=== PATIENT | male | born 2005 | race Caucasian/White ===

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

== ENCOUNTER 2024-06-12 16:45 | Inpatient (IN) | payer OTHER ==
--- NOTE | 2024-06-12 17:12 | ED ---
Psych HPI - General Chief Complaint: Psychiatric Symptoms Stated Complaint: SI Time Seen by Provider: 06/12/24 17:02 Source: patient, RN notes reviewed Mode of arrival: ambulatory - History of Present Illness Initial Comments: 18-year-old male presenting for suicidal ideation x 5 days. States he has no plan however does not feel comfortable being by himself right now due to the suicidal ideation he is having. Denies history of hospitalizations or suicide attempts. States this is the first time he has been open about his mental health. He lives with his grandparents and his cousin is present at bedside. No medical complaints. - Related Data Home Medications Medication Instructions Recorded Confirmed No Known Home Medications 11/16/22 11/16/22 Allergies Allergy/AdvReac Type Severity Reaction Status Date / Time No Known Allergies Allergy Verified 06/12/24 16:51 Review of Systems ROS Statement: Those systems with pertinent positive or pertinent negative responses have been documented in the HPI. ROS Other: All systems not noted in ROS Statement are negative. Past Medical History Past Medical History: Asthma History of Any Multi-Drug Resistant Organisms: None Reported Past Surgical History: No Surgical Hx Reported Past Psychological History: No Psychological Hx Reported Smoking Status: Current every day smoker Past Alcohol Use History: None Reported Past Drug Use History: Marijuana General Exam Limitations: no limitations General appearance: alert, in no apparent distress Head exam: Present: atraumatic, normocephalic, normal inspection Eye exam: Present: normal appearance, PERRL, EOMI. Absent: scleral icterus, conjunctival injection, periorbital swelling Neurological exam: Present: alert Psychiatric exam: Present: normal affect, normal mood, suicidal ideation. Absent: homicidal ideation Skin exam: Present: warm, dry, intact, normal color. Absent: rash Course Vital Signs 06/12/24 16:47 Temperature 98.2 F Pulse Rate 116 H Respiratory 18 Rate Blood Pressure 145/98 O2 Sat by Pulse 99 Oximetry Medical Decision Making - Medical Decision Making Was pt. sent in by a medical professional or institution ([facility] Perez, FOURTH OFFICER, urgent care, hospital, or longterm...) When possible be specific @ -No Did you speak to anyone other than the patient for history (EMS, parent, family, police, friend...)? What history was obtained from this source @ -No Did you review nursing and triage notes (agree or disagree)? Why? @ -I reviewed and agree with nursing and triage notes Were old charts reviewed (outside hosp., previous admission, EMS record, old EKG, old radiological studies, urgent care reports/EKG's, longterm records)? Report findings @ -No old charts were reviewed Differential Diagnosis (chest pain, altered mental status, abdominal pain women, abdominal pain men, vaginal bleeding, weakness, fever, dyspnea, syncope, headache, dizziness, GI bleed, back pain, seizure, CVA, palpatations, mental health, musculoskeletal)? @ -Differential Mental Health Depression, anxiety, bipolar, psychosis, schizophrenia, borderline personality, situational depression, adjustment disorder, behavioral disorder, brain tumor, malingering, substance abuse, encephalopathy, medication reaction, dementia, hypothyroidism, degenerative neurologic disorder, lupus.... This is not meant to be all-inclusive list EKG interpreted by me (3pts min.). @ -None X-rays interpreted by me (1pt min.). @ -None done CT interpreted by me (1pt min.). @ -None done U/S interpreted by me (1pt. min.). @ -None done What testing was considered but not performed or refused? (CT, X-rays, U/S, labs)? Why? @ -None What meds were considered but not given or refused? Why? @ -None Did you discuss the management of the patient with other professionals (professionals i.e. , PA, FOURTH OFFICER, lab, RT, psych nurse, social service manager, retail financial analyst, teacher, community reinvestment act officer, director case management)? Give summary @ - I spoke with [facility] who recommends psychiatric admission Was smoking cessation discussed for >3mins.? @ -No Was critical care preformed (if so, how long)? @ -No Were there social determinants of health that impacted care today? How? (Homelessness, low income, unemployed, alcoholism, drug addiction, transportation, low edu. Level, literacy, decrease access to med. care, nursing home, rehab)? @ -No Was there de-escalation of care discussed even if they declined (Discuss DNR or withdrawal of care, Hospice)? DNR status @ -No What co-morbidities impacted this encounter? (DM, HTN, Smoking, COPD, CAD, Cancer, CVA, ARF, Chemo, Hep., AIDS, mental health diagnosis, sleep apnea, morbid obesity)? @ -None Was patient admitted / discharged? Hospital course, mention meds given and route, prescriptions, significant lab abnormalities, going to OR and other pertinent info. @ - admitted. 18-year-old male presenting for suicidal ideation x 4 days. Denies plan. No medical complaints. Patient is cleared to be seen by EPS at this time. EPS recommends psychiatric admission, I agree with this plan. Case was discussed with my ED attending Dr. Pompa Undiagnosed new problem with uncertain prognosis? @ -No Drug Therapy requiring intensive monitoring for toxicity (Heparin, Nitro, Insulin, Cardizem)? @ -No Were any procedures done? @ -No Diagnosis/symptom? @ -Suicidal ideation Acute, or Chronic, or Acute on Chronic? @ -Acute Uncomplicated (without systemic symptoms) or Complicated (systemic symptoms)? @ -Default Side effects of treatment? @ -No Exacerbation, Progression, or Severe Exacerbation? @ -No Poses a threat to life or bodily function? How? (Chest pain, USA, ID, pneumonia, PE, COPD, DKA, ARF, appy, cholecystitis, CVA, Diverticulitis, Homicidal, Suicidal, threat to staff... and all critical care pts) @ -Yes, suicidal - Lab Data Lab Results 06/12/24 Range/Units 18:00 SARS-CoV-2 (PCR) Not Detected (Not Detectd) Disposition Clinical Impression: Suicidal ideation Disposition: ADMITTED IP TO THIS HOSP Referrals: None,Stated [Primary Care Provider] - 1-2 days Time of Disposition: 19:02
[2024-06-12] MEDS ORDERED: MAG HYDROX/AL HYDROX/SIMETH 355 ML BOTTLE PO PRN (19:26)
[2024-06-12] MEDS ORDERED: MAGNESIUM HYDROXIDE 2,400 MG/30 ML CUP PO PRN (19:26)
[2024-06-12] MEDS ORDERED: IBUPROFEN 600 MG TAB PO PRN (19:26)
[2024-06-12] MEDS ORDERED: LORazepam 1 MG TAB PO PRN (19:28)
[2024-06-12] MEDS ORDERED: haloperidoL 5 MG TAB PO PRN (19:28)
[2024-06-12] MEDS ORDERED: traZODone HCL 50 MG TAB PO PRN (19:28)
[2024-06-12] MEDS ORDERED: LORazepam 2 MG/ML INJ IM PRN (19:28)
[2024-06-12] MEDS ORDERED: HALOPERIDOL LACTATE 5 MG/ML 1 ML VIAL IM PRN (19:28)
[2024-06-12 20:39] VITALS: RESP 16
[2024-06-12 20:51] LABS: Appearance,Urine Clear (Clear); Bilirubin,Urine Negative (Negative); Blood,Urine Negative (Negative); Color,Urine Colorless; Glucose,Urine (UA) Negative (Negative); Ketones,Urine Negative (Negative); Leukocyte Esterase,Urine Negative (Negative); Nitrite,Urine Negative (Negative); PH, Urine 6.5 (5.0-8.0); Protein,Urine Negative (Negative); Specific Gravity,Urine 1.017 (1.001-1.035); Urobilinogen,Urine <2.0 mg/dL (<2.0)
[2024-06-13 07:28] LABS: Basophils % (A) 0 %; Eosinophils # (A) 0.2 k/uL (0-0.7); Eosinophils % (A) 2 %; HCT 46.2 % (39.0-53.0); HGB 15.1 gm/dL (13.0-17.5); Lymphocytes # (A) 2.5 k/uL (1.0-4.8); Lymphocytes % (A) 31 %; MCH 29.1 pg (25.0-35.0); MCHC 32.7 g/dL (31.0-37.0); MCV 88.7 fL (80.0-100.0); Mean Platelet Volume 6.4; Monocytes # (A) 0.6 k/uL (0-1.0); Monocytes % (A) 7 %; Neutrophils # (A) 4.5 k/uL (1.3-7.7); Neutrophils % (A) 57 %; Platelet Count 332 k/uL (150-450); RDW 12.9 % (11.5-15.5); WBC 7.9 k/uL (4.0-11.0)
[2024-06-13 07:42] LABS: ALT 19 U/L (4-49); AST 25 U/L (17-59); African American GFR (CKD) >90 (>60 ml/min/1.73 sqM); Alkaline Phosphatase 76 U/L (38-126); Anion Gap 11 mmol/L; Blood Urea Nitrogen 19 mg/dL (9-20); Calcium 9.8 mg/dL (8.4-10.2); Carbon Dioxide 26 mmol/L (22-30); Chloride 104 mmol/L (98-107); Glucose 91 mg/dL (74-99); Non-African American GFR(CKD) >90 (>60 ml/min/1.73 sqM); Sodium 141 mmol/L (137-145); Total Bilirubin 0.6 mg/dL (0.2-1.3); Total Protein 7.7 g/dL (6.3-8.2)
[2024-06-13] MEDS: NICOTINE 14MG/24HR PATCH TRANSDERM SCH (08:54)
[2024-06-13 09:38] LABS: Urine Alcohol Negative (Negative); Urine Barbiturate Negative (Negative); Urine Cocaine Negative (Negative); Urine Methadone Negative (Negative); Urine Opiates Negative (Negative); Urine Phencyclidine Negative (Negative)
[2024-06-13] MEDS ORDERED: SERTRALINE 50 MG TAB PO SCH (12:30)
--- NOTE | 2024-06-13 13:44 | P.HP ---
Psychiatric H&P - . H&P Date: 06/13/24 History & Physical: Allergies Allergy/AdvReac Type Severity Reaction Status Date / Time No Known Allergies Allergy Verified 06/12/24 19:50 Vital Signs Temp 97.9 F 06/13/24 06:42 Pulse 97 06/13/24 06:42 Resp 16 06/12/24 20:27 BP 127/82 06/13/24 06:42 Pulse Ox 99 06/13/24 06:42 FiO2 Intake & Output 06/12/24 06/13/24 06/13/24 18:59 06:59 18:59 Weight 56.699 kg 51.398 kg Laboratory Last Values WBC 7.9 k/uL (4.0-11.0) 06/13/24 06:58 RBC 5.20 m/uL (4.30-5.90) 06/13/24 06:58 Hgb 15.1 gm/dL (13.0-17.5) 06/13/24 06:58 Hct 46.2 % (39.0-53.0) 06/13/24 06:58 MCV 88.7 fL (80.0-100.0) 06/13/24 06:58 MCH 29.1 pg (25.0-35.0) 06/13/24 06:58 MCHC 32.7 g/dL (31.0-37.0) 06/13/24 06:58 RDW 12.9 % (11.5-15.5) 06/13/24 06:58 Plt Count 332 k/uL (150-450) 06/13/24 06:58 MPV 6.4 06/13/24 06:58 Neutrophils % 57 % 06/13/24 06:58 Lymphocytes % 31 % 06/13/24 06:58 Monocytes % 7 % 06/13/24 06:58 Eosinophils % 2 % 06/13/24 06:58 Basophils % 0 % 06/13/24 06:58 Neutrophils # 4.5 k/uL (1.3-7.7) 06/13/24 06:58 Lymphocytes # 2.5 k/uL (1.0-4.8) 06/13/24 06:58 Monocytes # 0.6 k/uL (0-1.0) 06/13/24 06:58 Eosinophils # 0.2 k/uL (0-0.7) 06/13/24 06:58 Basophils # 0.0 k/uL (0-0.2) 06/13/24 06:58 Sodium 141 mmol/L (137-145) 06/13/24 06:58 Potassium 4.0 mmol/L (3.5-5.1) 06/13/24 06:58 Chloride 104 mmol/L (98-107) 06/13/24 06:58 Carbon Dioxide 26 mmol/L (22-30) 06/13/24 06:58 Anion Gap 11 mmol/L 06/13/24 06:58 BUN 19 mg/dL (9-20) 06/13/24 06:58 Creatinine 0.89 mg/dL (0.66-1.25) 06/13/24 06:58 Est GFR (CKD-EPI)AfAm >90 (>60 ml/min/1.73 sqM) 06/13/24 06:58 Est GFR (CKD-EPI)NonAf >90 (>60 ml/min/1.73 sqM) 06/13/24 06:58 Glucose 91 mg/dL (74-99) 06/13/24 06:[address] Glu mg/dL 100 mg/dL 06/13/24 06:58 Hemoglobin A1c 5.1 % (<=6.0) 06/13/24 06:58 Calcium 9.8 mg/dL (8.4-10.2) 06/13/24 06:58 Total Bilirubin 0.6 mg/dL (0.2-1.3) 06/13/24 06:58 AST 25 U/L (17-59) 06/13/24 06:58 ALT 19 U/L (4-49) 06/13/24 06:58 Alkaline Phosphatase 76 U/L (38-126) 06/13/24 06:58 Total Protein 7.7 g/dL (6.3-8.2) 06/13/24 06:58 Albumin 5.0 g/dL (3.5-5.0) 06/13/24 06:58 TSH 1.560 mIU/L (0.465-4.680) 06/13/24 06:58 Urine Color Colorless 06/12/24 20:15 Urine Appearance Clear (Clear) 06/12/24 20:15 Urine pH 6.5 (5.0-8.0) 06/12/24 20:15 Ur Specific [place] 1.017 (1.001-1.035) 06/12/24 20:15 Urine Protein Negative (Negative) 06/12/24 20:15 Urine Glucose (UA) Negative (Negative) 06/12/24 20:15 Urine Ketones Negative (Negative) 06/12/24 20:15 Urine Blood Negative (Negative) 06/12/24 20:15 Urine Nitrite Negative (Negative) 06/12/24 20:15 Urine Bilirubin Negative (Negative) 06/12/24 20:15 Urine Urobilinogen <2.0 mg/dL (<2.0) 06/12/24 20:15 Ur Leukocyte Esterase Negative (Negative) 06/12/24 20:15 Urine Opiates Screen Negative (Negative) 06/12/24 20:15 Urine Methadone Screen Negative (Negative) 06/12/24 20:15 Ur Propoxyphene Screen Negative (Negative) 06/12/24 20:15 Urine Barbiturates Negative (Negative) 06/12/24 20:15 Ur Phencyclidine Scrn Negative (Negative) 06/12/24 20:15 Ur Amphetamine Screen Negative (Negative) 06/12/24 20:15 U Benzodiazepines Scrn Negative (Negative) 06/12/24 20:15 Urine Cocaine Screen Negative (Negative) 06/12/24 20:15 U Cannabinoids Screen Positive (Negative) A 06/12/24 20:15 Urine Alcohol Negative (Negative) 06/12/24 20:15 U Creatinine Drug Scrn 100.0 mg/dL (>=20.0) 06/12/24 20:15 SARS-CoV-2 (PCR) Not Detected (Not Detectd) 06/12/24 18:00 06/13/24 13:31 IDENTIFYING DATA: Patient is a 18-year-old male, recently unemployed and living at home with grandmother CHIEF COMPLAINT: SI HPI: Patient presented to the hospital with SI x5 days. EPS note revealed, "Pt arrived to ER with his cousin. He did approve cousin to be present during assessment. Pts affect is bland and flat. Pt states that he feels that he has been depressed and sad since he was 3yo and this is the first time he has sought treatment because he is worried that he is going to harm himself. He is scared that he is going to kill himself. He admits to SI with no specific plan. He states, "I don't care if I or how it happens". He states the SI has increased in the last 4 days with no known trigger. Pt does self harm by p unching self in the legs or jaw. He states today that he did elbow the wall, pt does have bruising on his right elbow but does not complain of any pain. He states that "it's just a way to release what is built up". Pt states that he feels unwanted and abandoned. He has been pushing the world away and withdrawing himself. He is not going to work and lacks the motivation to do so. He denies HI. He admits to AH of hearing his name being calling, but no command Hallucinations. Pt admits to paranoia and believes that people are following him, watching him, and out to get him. He states that he is always scared and anxious feeling. Pt has never sought any MH treatment and is on no home medications. Pt admits to marijuana use daily, denies other substances and denies etoh use. Pts sleep is anywhere from 2-12 hours, he wakes during the night, restless. He states that his appetite is up and down from eating just a bag of small chips to 3 meals in one sitting. Pt does states he has knives but denies gun access. Pt feels he lacks a support system and what he has he pushes away." Patient seen and evaluated on the unit and was agreeable with speaking to auto service writer in office. He states for the past 4-5 days he has been dealing with uneasy feelings of wanting to harm himself. Reports stressors including recently losing his job in addition to friends and family not being supportive. He lost his job due to his inability to get transportation. He states losing his mother roughly 15 years ago but has never really dealt with the grief. He reports sleep difficulties described as up-and-down and appetite issues described as up-and-down, anhedonia, hopelessness. He does report 2-3-day period per week of elevated mood and energy, decreased need for sleep, impulsivity and excess spending. Reports social anxiety described as fear of being scrutinized or judged that impacts his relationships. Patient denies any suicidal or homicidal ideations intent or plan. At this time patient denies any auditory or visual hallucinations. Patient denies any flight of ideas racing thoughts and increased in goal directed behavior. Patient admits to using cannabis daily, roughly 1 ounce per day and vaping nicotine daily. Psychoeducation provided on cannabis and patient was strongly encouraged to decrease and eventually discontinue its use. PAST PSYCHIATRIC HISTORY: Patient has a past psych history. Patient denies being on any psychiatric medications. Patient denies any previous psychiatric hospitalizations. Patient denies any psychiatric outpatient follow-up. Patient denies any history of suicide attempts in the past. PMH: as per ER note ALLERGIES: as per EMR SUBSTANCE USE HISTORY: As per HPI FAMILY PSYCHIATRIC/SUBSTANCE USE HISTORY: He reports alcoholism runs in his family SOCIAL HISTORY: Patient was born in [place] and raised in [place]. Single and has no children. He completed schooling up to the 11th grade. He is recently unemployed and living at home with his grandmother. MENTAL STATUS EXAM: General Appearance: Patient appears to be stated age is alert, directable, and attempts to cooperate. Patient appears to have poor hygiene and grooming. He is thin Behavior: Patient is seated without any agitated behavior. Speech: Patient's speech is fluent and nonpressured. Mood/Affect: Patient reports their mood is depressed, affect is congruent and constricted. Suicidality/Homicidality: Patient denies having any homicidal ideation intent or plan. Denies any suicidal ideations intent or plan Perceptions: Patient denies any visual hallucinations and denies any auditory hallucinations Though content/process: There is no evidence of any delusional thought content and thought process is linear and logical. Memory and concentration: AOX3, grossly intact for the purposes of this session. Can spell "WORLD" backwards Judgment and insight: Fair STRENGTHS/WEAKNESSES: strength is that patient is resilient does have some family support. Weakness is that patient has poor judgment and is impulsive INTELLECT: Average IMPRESSIONS: Bipolar 2 disorder, current episode depressed Social anxiety disorder Cannabis use disorder Nicotine dependence PLAN: -Patient is admitted under voluntary status to [facility]HU for stabilization of psychiatric symptoms and safety. Patient has signed adult voluntary form and medication consent and is placed in patient's chart. -Medications : Start Abilify 5 mg at bedtime for mood stabilization, trazodone 50 mg at bedtime for insomnia -Ativan and Haldol PRN for agitation/aggression -Patient was counselled on substance abuse and desired to cut back on use -Patient was informed of the risks, benefits and side effects of the medication and patient verbally consented to taking the medications. Patient signed med consent form and was placed in chart. -Internal Medicine consult to perform medical evaluation and physical. -NRT -nicotine gum PRN -SW on board for discharge planning. Encourage patient to participate in groups to work on coping skills. Anticipate discharge back home with grandmother on pending stabilization in mood symptoms, suicidal thoughts
[2024-06-13] MEDS: NICOTINE GUM (POLACRILEX) 2 MG GUM BUCCAL PRN (15:57)
[2024-06-13] MEDS: ARIPiprazole 5 MG TAB PO SCH (20:32)
[2024-06-13] MEDS: traZODone HCL 50 MG TAB PO SCH (20:32)
--- NOTE | 2024-06-14 12:29 | P.PN ---
Progress Note - Text Progress Note Date: 06/14/24 Interval History: Patient was seen in group and was directable and agreeable to speak with card writer hand in the office. He reports feeling better today however does report some irritability that led him to throw his blood overnight that he was reading. He reports fair sleep, described as sleeping for 4-5 hours which is more than his baseline of 3 hours. He states speaking to his father and that he has been encouraging. He reports experiencing a boost of energy overnight that led him to read an entire book. He has been participating in groups. At this time patient denies any suicidal or homicidal ideations, intent or plan. Patient denies any auditory, visual hallucinations and denies any paranoia or delusions. Patient denies any side effects from the medications and has been compliant with meds. Mental Status Exam: General Appearance: Patient appears to be stated age is alert, directable, and cooperative. He is thin Behavior: Patient is calmly seated without any agitated behavior. Speech: Patient's speech is fluent and nonpressured. Mood/Affect: Mood is improving mildly, affect is congruent and reactive. Suicidality/Homicidality: Patient denies having any suicidal or homicidal ideation intent or plan. Perceptions: Patient denies any visual hallucinations and denies any auditory hallucinations Though content/process: There is no evidence of any delusional thought content and thought process is linear and goal-directed. Memory and concentration: AOX3, grossly intact for the purposes of this session Judgment and insight: Improving mildly Assessment Bipolar 2 disorder, current episode depressed Social anxiety disorder Cannabis use disorder Nicotine dependence Plan: -Patient continues to meet criteria for inpatient psychiatric admission for symptom stabilization and safety. Patient has signed adult voluntary form and medication consent and was placed in patient's chart. -Medications: Increase Abilify to 10 mg at bedtime for mood stabilization and continue trazodone 50 mg at bedtime for insomnia -When necessary Ativan and Haldol for agitation/aggression. -Labs: Reviewed -NRT -nicotine gum as needed -SW on board for discharge planning. Encouraged the patient to participate in milieu. Anticipate discharge back home with grandmother on pending st abilization in mood symptoms and suicidal thoughts
[2024-06-14 13:25] VITALS: BMI 15.7
[2024-06-14] MEDS: ARIPiprazole 10 MG TAB PO SCH (20:32)
[2024-06-15 02:41] VITALS: TEMP 98.2
[2024-06-15] MEDS: hydrOXYzine pamoate 25 MG CAP PO PRN (11:36)
--- NOTE | 2024-06-15 12:01 | P.PN ---
Progress Note - Text Progress Note Date: 06/15/24 Interval History: Patient was seen in group and was directable and agreeable to speak with tech writer in the office. He reports feeling really well. Patient notably has been participating in groups with bright affect. He reportedly slept for 3 hours overnight however patient did mention this is at his baseline. He denied any mood swings and reports eating well. He spoke to his grandmother. He continues to report anxiety during social situations and was slightly restless on interview. At this time patient denies any suicidal or homicidal ideations, intent or plan. Patient denies any auditory, visual hallucinations and denies any paranoia or delusions. Patient denies any side effects from the medications and has been compliant with meds. Mental Status Exam: General Appearance: Patient appears to be stated age is alert, directable, and cooperative. Behavior: Patient is calmly seated without any agitated behavior. Speech: Patient's speech is fluent and nonpressured. Mood/Affect: Mood is improving mildly, affect is congruent and bright, reactive. Suicidality/Homicidality: Patient denies having any suicidal or homicidal ideation intent or plan. Perceptions: Patient denies any visual hallucinations and denies any auditory hallucinations Though content/process: There is no evidence of any delusional thought content and thought process is linear and goal-directed. Memory and concentration: AOX3, grossly intact for the purposes of this session Judgment and insight: Improving mildly Assessment Bipolar 2 disorder, current episode depressed Social anxiety disorder Cannabis use disorder Nicotine dependence Plan: -Patient continues to meet criteria for inpatient psychiatric admission for symptom stabilization and safety. Patient has signed adult voluntary form and medication consent and was placed in patient's chart. -Medications: Continue Abilify 10 mg at bedtime for mood stabilization, trazodone 50 mg at bedtime for insomnia, start Vistaril 25 mg 3 times daily as needed for anxiety -When necessary Ativan and Haldol for agitation/aggression. -Labs: Reviewed -NRT -nicotine gum as needed -SW on board for discharge planning. Encouraged the patient to participate in milieu. Anticipate discharge back home with grandmother tomorrow
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
[2024-06-16] MEDS: ACETAMINOPHEN TAB 325 MG TAB PO PRN (08:18)
[2024-06-16 09:53] VITALS: BP 122/83; PULSE 125
--- NOTE | 2024-06-16 12:54 | P.DS ---
Providers Date of admission: 06/12/24 19:21 Expected date of discharge: 06/16/24 Attending physician: Nguyen Alarcon MD Consults: 06/12/24 19:26 Consult Physician Routine Consulting Provider: Kelly Byers Consult Reason/Comments: H&P Do you want consulting provider notified?: Yes Primary care physician: Stated None - Discharge Diagnosis(es) (1) Bipolar I disorder, current episode depressed Current Visit: Yes Status: Acute Priority: High (2) Social anxiety disorder Current Visit: Yes Status: Acute Priority: Medium (3) Cannabis use disorder Current Visit: Yes Status: Acute Priority: Low (4) Nicotine dependence Current Visit: Yes Status: Acute Priority: Low Hospital Course: Admission HPI: Admission note was completed by news writer "Patient presented to the hospital with SI x5 days. EPS note revealed, "Pt arrived to ER with his cousin. He did approve cousin to be present during assessment. Pts affect is bland and flat. Pt states that he feels that he has been depressed and sad since he was 3yo and this is the first time he has sought treatment because he is worried that he is going to harm himself. He is scared that he is going to kill himself. He admits to SI with no specific plan. He states, "I don't care if I or how it happens". He states the SI has increased in the last 4 days with no known trigger. Pt does self harm by punching self in the legs or jaw. He states today that he did elbow the wall, pt does have bruising on his right elbow but does not complain of any pain. He states that "it's just a way to release what is built up". Pt states that he feels unwanted and abandoned. He has been pushing the world away and withdrawing himself. He is not going to work and lacks the motivation to do so. He denies HI. He admits to of hearing his name being calling, but no command Hallucinations. Pt admits to paranoia and believes that people are following him, watching him, and out to get him. He states that he is always scared and anxious feeling. Pt has never sought any MH treatment and is on no home medications. Pt admits to marijuana use daily, denies other substances and denies etoh use. Pts sleep is anywhere from 2-12 hours, he wakes during the night, restless. He states that his appetite is up and down from eating just a bag of small chips to 3 meals in one sitting. Pt does states he has knives but denies gun access. Pt feels he lacks a support system and what he has he pushes away." Patient seen and evaluated on the unit and was agreeable with speaking to news writer in office. He states for the past 4-5 days he has been dealing with uneasy feelings of wanting to harm himself. Reports stressors including recently losing his job in addition to friends and family not being supportive. He lost his job due to his inability to get transportation. He states losing his mother roughly 15 years ago but has never really dealt with the grief. He reports sleep difficulties described as up-and-down and appetite issues described as up-and-down, anhedonia, hopelessness. He does report 2-3-day period per week of elevated mood and energy, decreased need for sleep, impulsivity and excess spending. Reports social anxiety described as fear of being scrutinized or judged that impacts his relationships. Patient denies any suicidal or homicidal ideations intent or plan. At this time patient denies any auditory or visual hallucinations. Patient denies any flight of ideas racing thoughts and increased in goal directed behavior. Patient admits to using cannabis daily, roughly 1 ounce per day and vaping nicotine daily. Psyc hoeducation provided on cannabis and patient was strongly encouraged to decrease and eventually discontinue its use." Hospital course: Upon admission to the unit patient was directable and agreeable to commence treatment and signed adult voluntary form.. Patient got along well with other patients on the unit and followed unit protocol. Patient was compliant with the medications and denied any side effects throughout hospital course. Patient was started on find this was increased to 10 mg at bedtime for mood stabilization, trazodone 50 mg at bedtime for insomnia, Vistaril 25 mg 3 times daily for anxiety as needed. Patient spoke of his stressors and engaged in therapy both group and individual. Patient was also seen by medical team for history and physical exam. Throughout the course of the hospitalization patient gradually improved with regards to mood, anxiety, sleep and became more future oriented with improved insight and judgment. On the day of discharge patient denied any suicidal or homicidal ideations intent or plan denied any auditory or visual hallucinations. The patient denied any access to guns or weapons. Patient denied any paranoia and did not endorse any delusions. Patient does not have a significant history of substance abuse and was counseled on abstaining from all substances including alcohol and marijuana. Patient was also counseled on the medications and need for regular compliance and was encouraged to follow-up with their outpatient appointment for mental health and also for primary care. Prior to discharge a family meeting will be arranged by social service assistant to answer any questions and ensure safety upon discharge including making sure that guns/weapons are either removed from the home or locked away. Patient to be discharged back home with grandmother who confirmed no firearms at home. He will follow-up with [facility]. Mental status exam: General Appearance: Patient appears to be stated age is alert, pleasant, and cooperative. Patient is in no acute distress and has good hygiene and grooming. Patient has thin body habitus Behavior: Patient is calmly seated without any agitated behavior. Speech: Patient's speech is fluent and nonpressured. Mood/Affect: Patient reports their mood is "better", affect is congruent and euthymic, bright. Suicidality/Homicidality: Patient denies having any suicidal or homicidal ideation intent or plan. Perceptions: Patient denies any auditory or visual hallucinations. Though content/process: There is no evidence of any delusional thought content and thought process is linear and goal-directed. More future oriented Memory and concentration: AOX3, grossly intact for the purposes of this session. Can spell "WORLD" backwards correctly. Judgment and insight: Good Impression: Bipolar 2 disorder, current episode depressed Social anxiety disorder Cannabis use disorder Nicotine dependence Plan: -Continue with discharge today as patient has improved and stabilized psychiatrically and is not currently an imminent threat to themself and/or others. -Continue medications: Abilify 10 mg at bedtime, trazodone 50 mg at bedtime, Vistaril 25 mg 3 times daily as needed -Patient was counseled on the need for medication compliance and appropriate follow-up at mental health and also primary care for medical issues. Patient verbalized understanding and agreed. -Social work to help coordinate patients discharge today arrange for and conduct family meeting to ensure safety upon discharge and answer any questions/concerns. also to ensure safe home environment that guns/weapons are either removed from the home or locked away. Social work also to arrange for patients follow up appointments with [facility] for psychiatric care along with follow up with primary care provider. -Patient counseled on abstaining from recreational drugs and marijuana and alcohol. Was informed/educated on the adverse effects on their physical and mental health. Patient verbally agreed and understood. -Patient was instructed to return to the hospital or seek immediate medical care if their psychiatric or medical symptoms do worsen or reoccur. Abnormal Labs 06/12/24 20:15 U Cannabinoids Screen Positive A Vital Signs Temp 98.2 F 06/15/24 02:40 Pulse 125 H 06/16/24 08:15 Resp 16 06/16/24 08:15 BP 122/83 06/16/24 08:15 Pulse Ox 98 06/14/24 06:40 FiO2 Allergies Allergy/AdvReac Type Severity Reaction Status Date / Time No Known Allergies Allergy Verified 06/12/24 19:50 Patient Condition at Discharge: Stable Plan - Discharge Summary Discharge Rx Participant: No New Discharge Prescriptions: New ARIPiprazole [Abilify] 10 mg PO HS 30 Days #30 tab Nicotine Gum (Polacrilex) [Nicorette] 2 mg BUCCAL Q4HR PRN pieceofgum PRN Reason: Nicotine Cravings hydrOXYzine pamoate [Vistaril] 25 mg PO TID PRN 30 Days #90 cap PRN Reason: Anxiety traZODone HCL [Desyrel] 50 mg PO HS 30 Days #30 tab Discharge Medication List ARIPiprazole [Abilify] 10 mg PO HS 30 Days #30 tab 06/16/24 [Rx] Nicotine Gum (Polacrilex) [Nicorette] 2 mg BUCCAL Q4HR PRN pieceofgum 06/16/24 [Rx] hydrOXYzine pamoate [Vistaril] 25 mg PO TID PRN 30 Days #90 cap 06/16/24 [Rx] traZODone HCL [Desyrel] 50 mg PO HS 30 Days #30 tab 06/16/24 [Rx] Follow up Appointment(s)/Referral(s): [facility] [Outside] - 06/17/24 12:30 pm [facility] [REFERRING] - 06/17/24 12:30 pm (with Char) Patient Instructions/Handouts: How to Stop Smoking (DC), Bipolar Disorder (DC), Social Anxiety Disorder (GEN) Activity/Diet/Wound Care/Special Instructions: [facility] Discharge Info Avoid the use of street drugs and alcohol. Take all medications as prescribed. When you are in need of refills on your medications, please contact your outpatient medical provider and/or outpatient psychiatrist. Please go to your scheduled outpatient appointments for aftercare treatment. If symptoms return or become worse, call the crisis line at or and/or visit the nearest emergency room for assistance. [facility] - call or text 718. Discharge Disposition: HOME SELF-CARE
== END 2024-06-16 13:25 | disposition home or self-care (01) | DRG 885 ==
LOC: EC 16:45 → 3MHU 19:21
PROVIDERS: ADMIT Psychiatry & Neurology Psychiatry; ATTEND Psychiatry & Neurology Psychiatry
DX: F31.30 Bipolar disorder, current episode depressed, mild or moderate severity, unspecified (principal); R45.851 Suicidal ideations; F12.10 Cannabis abuse, uncomplicated; J45.909 Unspecified asthma, uncomplicated; F40.10 Social phobia, unspecified; F17.210 Nicotine dependence, cigarettes, uncomplicated; S50.01XA Contusion of right elbow, initial encounter; G89.29 Other chronic pain; M25.512 Pain in left shoulder; M25.511 Pain in right shoulder; R29.6 Repeated falls; R45.1 Restlessness and agitation; F17.290 Nicotine dependence, other tobacco product, uncomplicated; R45.88 Nonsuicidal self-harm; Z56.0 Unemployment, unspecified; G47.00 Insomnia, unspecified; Z28.310 Unvaccinated for COVID-19; Z11.52 Encounter for screening for COVID-19; Z63.4 Disappearance and death of family member; Z91.81 History of falling
CPT/HCPCS: 80053; 80306; 81003; 82075; 83036; 84443; 85025; 87635; 99285